=== PATIENT | female | born 1935 | race Caucasian/White ===

== ENCOUNTER 2019-02-06 09:14 | Day surgery (SDC) ==
--- NOTE | 2019-02-06 10:49 | EKG Report ---
Test Performed on : 02/06/2019 10:47:01 AM Test Reason : ams Blood Pressure : / mmHG Vent. Rate : 078 BPM Atrial Rate : 079 BPM P-R Int : 176 ms QRS Dur : 136 ms QT Int : 474 ms P-R-T Axes : 000 -33 059 degrees QTc Int : 540 ms Normal sinus rhythm. with sinus arrhythmia. Left axis deviation Left bundle branch block Abnormal ECG When compared with ECG of 21-JUN-2018 14:55, Left bundle branch block is now present Criteria for Septal infarct are no longer present Unconfirmed Result
[2019-02-06 11:04] LABS: URINE SOURCE CLEAN CATCH
[2019-02-06 11:13] LABS: BILIRUBIN URINE NEGATIVE (NEGATIVE); BLOOD URINE NEGATIVE (NEGATIVE); COLOR YELLOW; GLUCOSE URINE NEGATIVE (NEGATIVE); KETONE URINE NEGATIVE (NEGATIVE); LEUKOCYTES URINE NEGATIVE (NEGATIVE); NITRITE URINE NEGATIVE (NEGATIVE); PH URINE 5.5; PROTEIN URINE TRACE mg/dL (NEGATIVE); SP GRAVITY URINE 1.023; TURBIDITY URINE CLEAR (CLEAR); UR EPITHELIAL CELLS <10 /HPF (<10); URINE BACTERIA NEGATIVE /HPF; URINE RBC <10 /HPF (<10); URINE WBC <10 /HPF (<10); UROBILINOGEN URINE NORMAL (NORMAL)
--- NOTE | 2019-02-06 11:15 | Diag Imaging Result Doc PS360 ---
CHEST-PORTABLE - 02/06/2019 INDICATION: ams COMPARISON: 07/03/2018 FINDINGS: The lungs are normally expanded and clear. Heart size and mediastinal contours are normal. No pneumothorax or pleural effusion. IMPRESSION: Negative exam. Electronically signed by Ronak Hernandez 02/06/2019 11:13 AM
--- NOTE | 2019-02-06 11:28 | Diag Imaging Result Doc PS360 ---
CT HEAD W/O CONTRAST - 02/06/2019 INDICATION: AMS COMPARISON: 06/21/2018 FINDINGS: Stable mild cerebral atrophy. Stable advanced periventricular white matter chronic microvascular disease. No intracranial mass or hemorrhage. The skull is intact. The sinuses, mastoids, and middle ears are clear. IMPRESSION: Advanced chronic ischemic changes of the brain. No acute process. This exam was performed using automated exposure control, adjustment of mA or kV according to patient size, and/or use of iterative reconstruction technique Electronically signed by Ronak Hernandez 02/06/2019 11:26 AM
[2019-02-06 12:55] LABS: BASO# 0.04 X1000 (0.0-0.2); BASO% 0.4 % (0.0-0.8); EOS# 0.26 X1000 (0.0-0.7); EOS% 2.9 % (0.0-10.0); HEMATOCRIT 38.1 % (37.0-47.0); HEMOGLOBIN 12.5 g/dL (12.0-16.0); IMM GRAN# 0.03 X1000 (0.0-0.04); IMM GRAN% 0.3 % (0.0-0.5); LYMPH# 2.91 X1000 (1.2-3.4); LYMPH% 32.3 % (20.5-51.1); MCH 30.6 PG (27-31); MCHC 32.8 g/dL (33-37); MCV 93.2 FL (81-99); MONO# 0.79 X1000 (0.11-0.59); MONO% 8.8 % (1.7-9.3); MPV 10.4 FL (7.4-10.4); NEUT# 4.97 X1000 (1.4-6.5); NEUT% 55.3 % (42.2-75.2); PLT 232 X1000 (130-400); RBC 4.09 XMIL (4.2-5.4); RDW 13.1 % (11.5-14.5)
[2019-02-06 13:06] LABS: ALB/GLOB RATIO 1.1; ALBUMIN 3.7 g/dL (3.5-5.0); CALCIUM 9.6 mg/dL (8.8-10.2); CREATININE 0.9 mg/dL (0.5-0.9); INR 0.91; POTASSIUM 3.5 mmol/L (3.5-5.1); TOTAL BILIRUBIN 0.24 mg/dL (0.20-1.00)
[2019-02-06 13:07] LABS: PTT 27.7 Seconds (22.3-41.8)
[2019-02-06 13:34] LABS: CK INDEX 0.7 (0.0-2.5); CK-MB 2.86 ng/mL (0.0-5.0)
[2019-02-06] MEDS ORDERED: NS 500 ML IV ONE (14:13)
[2019-02-06] MEDS ORDERED: SENOKOT PO PRN (17:17)
[2019-02-06] MEDS ORDERED: TYLENOL PO PRN (17:17)
[2019-02-06] MEDS ORDERED: ANTIVERT PO PRN (17:17)
[2019-02-06] MEDS ORDERED: NS 1,000 ML IV ONE (17:17)
[2019-02-06] MEDS ORDERED: ZOFRAN IV PRN (17:17)
[2019-02-06] MEDS ORDERED: VOLTAREN 1% GEL TOP PRN (17:17)
--- NOTE | 2019-02-06 18:30 | HISTORY AND PHYSICAL ---
CHIEF COMPLAINT: Family had difficulty awakening her this morning. HISTORY OF PRESENT ILLNESS: This is the first recent [facility] admission for this 83-year- old white female, who was somnolent and lethargic this morning when family tried to awaken her. She was brought to the emergency room for evaluation. Laboratory was unremarkable except for plasma lactate, 3.5. White blood count was 9000. CT of her head showed ischemic changes but not acute, chest x-ray was clear, and echocardiogram showed no arrhythmia or evidence of ischemia. She is admitted for observation and hydration. Seroquel will be held at this time. Her home dose has been 50 mg at bedtime. PAST MEDICAL HISTORY: No recent hospitalizations or surgery. MEDICATIONS: Vitamin D 50,000 units once weekly; Seroquel 50 mg at bedtime; diclofenac gel for arthritis p.r.n.; Aricept 5 mg 1 daily; Lexapro 10 mg 1 daily; indapamide 1.25 mg 1 daily; meclizine 12.5 mg t.i.d. p.r.n. dizziness; meloxicam p.r.n. arthritis pain. ALLERGIES: Penicillin, Demerol, metoclopramide and morphine. REVIEW OF SYSTEMS: Significant for bilateral hearing loss. She has dementia which has progressed over the last 6 months or so. SOCIAL HISTORY: She is . Her is in a rehab facility and has had strokes and disability. There is no history of smoking or alcohol usage. PHYSICAL EXAMINATION: VITAL SIGNS: Temperature 98.5 degrees, heart rate 66, respirations 18, blood pressure 162/58, O2 saturation on room air 96%. GENERAL: The patient is a well-developed, well-nourished elderly white female in no apparent distress. HEENT: Pupils equal, round and reactive to light. She wears glasses. Tympanic membranes without inflammation. Pharynx benign, with no erythema. NECK: Supple, with no mass or lymphadenopathy. HEART: Regular in rate and rhythm with no murmur, rub or gallop. LUNGS: Clear, with no rales or rhonchi. ABDOMEN: Soft, with no mass, tenderness or organomegaly. EXTREMITIES: No cyanosis, clubbing or edema. Gait slow but stable. IMPRESSION: 1. Lethargy of undetermined etiology. 2. Dementia. 3. Elevated plasma lactate. PLAN: Admit for observation and further evaluation. cc: Durga Ha MD
[2019-02-06] MEDS ORDERED: REQUIP PO SCH (21:00)
[2019-02-06] MEDS ORDERED: REMERON PO SCH ×2 (21:00)
[2019-02-06] MEDS ORDERED: NAMENDA PO SCH ×2 (21:00)
[2019-02-06] MEDS ORDERED: ARICEPT PO SCH ×2 (21:00)
[2019-02-06] MEDS: NS 1,000 ML IV SCH (22:34)
--- NOTE | 2019-02-07 08:12 | PROGRESS NOTE ---
DATE: 02/07/2019 Vital Signs: Temperature 98.3 degrees, heart rate 59, respirations 20, blood pressure 177/57, and O2 saturation on room air 98%. Patient is arousable and alert this morning. She continues to be confused, but mental status is basically unchanged. Serum lactate has improved to 2.0. Initial lactate in the emergency room was 3.5 yesterday. She does not complain of pain. Chest is clear. Abdomen is soft. PLAN: Amlodipine 2.5 mg daily is added. She will ambulate with assistance. Discharge home this afternoon will be considered. cc: Durga Ha MD
[2019-02-07] MEDS ORDERED: LOZOL PO SCH ×2 (09:00)
[2019-02-07] MEDS ORDERED: MOBIC PO SCH ×2 (09:00)
[2019-02-07] MEDS ORDERED: LEXAPRO PO SCH ×2 (09:00)
[2019-02-07] MEDS ORDERED: ALLEGRA PO SCH (09:00)
[2019-02-07] MEDS ORDERED: NORVASC PO SCH (09:00)
[2019-02-07] MEDS: NS 1,000 ML IV SCH (15:29)
[2019-02-07 17:37] VITALS: BP 140/48
--- NOTE | 2019-02-07 19:00 | DISCHARGE SUMMARY ---
ADMISSION DATE: 02/06/2019 DISCHARGE DATE: 02/07/2019 FINAL DIAGNOSES: 1. Lethargy of undetermined etiology. 2. Elevated serum lactate. 3. Volume depletion. DISCHARGE MEDICATIONS: Usual medication at home except Seroquel 50 mg at bedtime is discontinued. HISTORY: This is one of a few [facility] admissions for this 83-year-old white female, who was found lethargic and difficult to arouse at home prior to admission. She was brought to the emergency room, and after hydration she became more alert. Serum lactate was elevated at 3.5, and she was admitted for further evaluation and treatment. Initial laboratory: Hemoglobin 12.5, hematocrit 38.1, white blood count 9000 with normal differential. Sodium 142, potassium 3.5, BUN 20, creatinine 0.9, glucose 88. Liver functions normal. CPK 415, CK index 0.7, troponin less than 0.01. Urinalysis normal. HOSPITAL COURSE: She was treated with intravenous fluids, and after being more alert this morning was ambulated without difficulty. Appetite has been fairly good. Serum lactate this morning was 2.0. She has been afebrile and shows no signs of sepsis or fever. She is discharged home this afternoon on her usual medications, except Seroquel is discontinued. She is to return to the office in 1 week or as needed for followup. cc: Durga Ha MD
== END 2019-02-07 18:21 | disposition home or self-care (01) ==
LOC: SUPCPDRO → ED 09:14 → 4N 09:14 → MED 15:59
PROVIDERS: ATTEND Family Medicine
CPT/HCPCS: 70450; 71010; 71045; 80053; 81001; 82550; 82553; 83605; 84484; 85025; 85610; 85730; 93005; 96360; 99285; A9270; J7030; J7040

== ENCOUNTER 2019-02-27 16:27 | Inpatient (IN) ==
--- NOTE | 2019-02-27 16:57 | Diag Imaging Result Doc PS360 ---
CT HEAD W/O CONTRAST - 02/27/2019 INDICATION: AMS, FALL COMPARISON: 02/06/2019 FINDINGS: Stable diffuse cerebral atrophy. Stable advanced periventricular white matter chronic microvascular disease. No intracranial mass or hemorrhage. The skull is intact. The sinuses are clear. IMPRESSION: No acute disease or change from prior. This exam was performed using automated exposure control, adjustment of mA or kV according to patient size, and/or use of iterative reconstruction technique Electronically signed by Ronak Hernandez 02/27/2019 4:54 PM
[2019-02-27] MEDS ORDERED: NS 1,000 ML IV ONE ×2 (20:26→21:54)
[2019-02-27 21:13] LABS: BASO# 0.02 X1000 (0.0-0.2); BASO% 0.1 % (0.0-0.8); HEMATOCRIT 44.7 % (37.0-47.0); HEMOGLOBIN 15.7 g/dL (12.0-16.0); IMM GRAN# 0.03 X1000 (0.0-0.04); IMM GRAN% 0.2 % (0.0-0.5); LYMPH# 1.61 X1000 (1.2-3.4); LYMPH% 11.8 % (20.5-51.1); MCH 31.1 PG (27-31); MCHC 35.1 g/dL (33-37); MCV 88.5 FL (81-99); MONO# 0.87 X1000 (0.11-0.59); MONO% 6.4 % (1.7-9.3); NEUT% 81.5 % (42.2-75.2); PLT 303 X1000 (130-400); RBC 5.05 XMIL (4.2-5.4); WBC 13.63 X1000 (4.8-10.8)
[2019-02-27 21:37] LABS: ALB/GLOB RATIO 1.1; ALBUMIN 4.5 g/dL (3.5-5.0); CALCIUM 9.9 mg/dL (8.8-10.2); CREATININE 1.1 mg/dL (0.5-0.9); POTASSIUM 2.7 mmol/L (3.5-5.1); TOTAL BILIRUBIN 0.61 mg/dL (0.20-1.00); TOTAL PROTEIN 8.5 g/dL (6.3-8.3)
[2019-02-27] MEDS ORDERED: KLOR-CON PO ONE (21:53)
[2019-02-28] MEDS ORDERED: POTASSIUM CHLORIDE 60 MEQ in NS 500 ML IV ONE (00:11)
--- NOTE | 2019-02-28 00:13 | PROVIDER DOCUMENTATION ---
This chart was entered by Meera Roca Scribe, acting as scribe for Zhane Hernandez MD. HPI-General Adult - General Chief Complaint: Fall Stated Complaint: FALL Time Seen by Provider: 02/27/19 19:37 Source: patient Allergies/Adverse Reactions: Patient Allergies Allergy/AdvReac Type Severity Reaction Status Date / Time Penicillins Allergy Severe SWELLING Verified 02/27/19 19:59 meperidine HCl * AdvReac Severe NAUSEA/VOMI Verified 02/27/19 19:59 [From Demerol] TING metoclopramide HCl * AdvReac Severe shaking Verified 02/27/19 19:59 [From Reglan] morphine AdvReac Severe NAUSEA/VOMI Verified 02/27/19 19:59 TING Home Medications: Home Medication List Medication Instructions Recorded Confirmed Last Taken Type Amlodipine [Norvasc] 5 mg PO DAILY 02/27/19 02/27/19 02/27/19 12:00 History Donepezil HCl 5 mg PO DAILY 02/27/19 02/27/19 02/27/19 12:00 History Indapamide 1.25 mg PO DAILY 02/27/19 02/27/19 02/27/19 12:00 History Memantine [Namenda] 5 mg PO DAILY 02/27/19 02/27/19 02/27/19 12:00 History - History of Present Illness -Gen Adult Nature of Presenting Problems: Pt is 83/F presenting to ED via EMS. Pt was found by family w/ dried blood on the back of her head and she has vomited x2 since 4pm. Pt has dementia and does not remember what happened. it is assumed that patient fell at some point. Location of Pain/Injury: reports: head (occipital) Pain Radiation: reports: no radiation Quality of Pain: reports: other (dried blood and abrasion) Severity: reports: mild Onset/Duration: reports: unsure Timing: reports: still present Context/Activities at Onset: reports: none Modifying Factors: improves with: nothing Associated Symptoms: reports: vomiting. denies: chest pain, shortness of breath Similar Symptoms Previously?: No Recently seen or treated by another doctor?: No Review of Systems - Adult - REVIEW OF SYSTEMS - ADULT Constitutional: denies: chills, fever Eyes: reports: no symptoms reported Ears, Nose, Mouth & Throat: denies: ear pain, nose pain Cardiovascular: reports: no symptoms reported Gastrointestinal: reports: nausea, vomiting Genitourinary: reports: no symptoms reported Musculoskeletal: reports: no symptoms reported Integumentary: reports: no symptoms reported Neurological: denies: dizziness/vertigo, headache/migraines, slurred speech Endocrine: reports: no symptoms reported Hematologic/Lymphatic: reports: no symptoms reported Past History - Adult - PAST MEDICAL HISTORY-ADULT Review of Records: reports: Old Records Reviewed, Nursing Assessment Review, Medications Reviewed, Social history reviewed & non-contributory. Cardiovascular: reports: HTN Neurological: reports: dementia - PRIOR SURGERIES/PROCEDURES Surgical/Procedure History: reports: cholecystectomy, hysterectomy - IMMUNIZATION STATUS Childhood Immunizations: See Nurse Assessment Flu Vaccine: See Nurse Assessment - FAMILY HISTORY Family History: reviewed, not pertinent - SOCIAL HISTORY Smoking: denies, non-smoker Substance Use: none/never Alcohol Use Frequency: never Physical Exam-General - PHYSICAL EXAM-ADULT Initial Vital Signs Reviewed: Yes - CONSTITUTIONAL General Appearance: appears well, alert, no apparent distress - EYES Eyes: PERRL/EOMI, pink conjunctivae - HEAD, EARS, NOSE, MOUTH & THROAT HENMT: other (small bloody crust on the occiput). negative: moist mucous membranes (dry mucous membranes) - NECK Neck: non-tender, full range of motion, supple, normal inspection - RESPIRATORY Respiratory: chest non-tender, lungs clear, normal breath sounds - CARDIOVASCULAR Cardiovascular: regular rate, rhythm - GASTROINTESTINAL (ABDOMEN) Abdominal Exam: non tender, soft - LYMPHATIC Lymphatic: no adenopathy - MUSCULOSKELETAL Back Exam: normal inspection, no CVA tenderness, no vertebral tenderness Extremity: normal range of motion, non-tender, normal gait, normal inspection - SKIN Integumentary: other (abrasion to occipital area, dried blood noted) - PSYCHIATRIC Psych/Mental Status: normal mood/affect Progress - PLAN OF CARE/RESULTS Progress/Plan/Lab Results: Vital Signs - 8 hr 02/27/19 19:32 02/27/19 19:36 02/27/19 19:40 Temperature 98.3 F Pulse Rate 74 Respiratory Rate 18 Blood Pressure 149/70 149/70 O2 Sat by Pulse Oximetry 96 96 98 02/27/19 19:50 02/27/19 20:00 Temperature Pulse Rate 76 Respiratory Rate 16 Blood Pressure 136/53 O2 Sat by Pulse Oximetry 95 98 Orders Category Date Time Status Orthostatic Vital Signs NOW Care 02/27/19 20:[address] HEAD W/O CONTRAST [CT] Stat Exams 02/27/19 16:42 Completed CBC WITH ELECTRONIC DIFF [HEME] Stat Lab 02/27/19 20:20 Uncollected CMP [COMPREHENSIVE METABOLIC PANEL] [CHEM] Stat Lab 02/27/19 20:20 Uncollected TROPONIN T Stat Lab 02/27/19 20:20 Uncollected 0.9% Sodium Chloride Inj [Ns] 1,000 ml Med 02/27/19 20:26 Active IV 999 mls/hr EKG [EKG] Stat Ther 02/27/19 20:20 Ordered Result Diagrams: 02/27/19 20:40 02/27/19 20:40 - REASSESSMENT Reassessment #1 Time Reassessed: 22:02 Status: improving Reassessment #2 Time Reassessed: 23:10 Status: improving - CONSULTS/PCP/HOSPITALIST Notification #1 *Consult/PCP/Hospitalist*: Dr. Cabrera Time Discussed: 23:34 Consult Disposition: Admit (Hx, PE and patient care discussed, accepted.) Departure - Departure Date of Disposition Decision: 02/27/19 Time of Disposition Decision: 23:32 DIAGNOSIS: Orthostatic hypotension Fall Qualifiers: Encounter type: initial encounter Qualified Code(s): W19.XXXA - Unspecified fall, initial encounter Head injury Qualifiers: Encounter type: initial encounter Qualified Code(s): S09.90XA - Unspecified injury of head, initial encounter Disposition: ADMITTED INPATIENT 09 Certified Medical Emergency: Emergent Condition: Stable Referrals and Follow-Ups: Cuong Valentine [Primary Care Provider] - - Critical Care Note This patient required my direct & personal management of CC.: No Attestation - Physician/ DUNCAN Attestation Patient care was provided by Advanced Practice Provider:: No The physician spent face to face time with patient:: Yes Advanced Practice Provider documentation review:: Supervising physician onsite and consulted in the evaluation and care of this patient. The physician did have a face to face encounter with the patient. This chart was documented by the indicated scribe, (Meera Roca, Cristina) and accurately reflects the services I performed and decisions made by me, Zhane Millan MD, as attested by the provider's signature.
[2019-02-28] MEDS: ROCEPHIN 1 GM in NS 50 ML IV SCH (00:25)
--- NOTE | 2019-02-28 00:59 | HISTORY AND PHYSICAL ---
PRIMARY CARE PHYSICIAN: Dr. Durga Ha. CHIEF COMPLAINT: The patient was brought because of a fall. HISTORY OF PRESENT ILLNESS: This is an 83-year-old female who was brought to the emergency department by EMS. History was taken from ER notes and from the ER physician information, Dr. Hernandez. Apparently the patient was found by family with some dried blood on the back of her head, and apparently also she has vomited 4 times since today at 4 p.m. The patient is alone in the room, no family members to provide more information. On checking prior records she was admitted to the hospital 3 weeks ago for lethargy and dementia. The patient was also admitted to [facility] in May 2018 for dementia and aggressive behavior. Upon ER evaluation the patient had a head CT, which showed no acute intracranial abnormalities, but laboratory data showed an elevated white cell count of 13.63, with a low potassium of 2.7, and also the patient was having orthostatic vital signs and blood pressure drop. The patient is being admitted for further evaluation and treatment. PAST MEDICAL HISTORY: 1. Alzheimer dementia with behavioral disturbances. 2. Vitamin D deficiency. 3. Osteoarthritis. PAST SURGICAL HISTORY: None available. ALLERGIES: The patient is allergic to Demerol, penicillin, Reglan, and morphine. SOCIAL HISTORY: Apparently she is , lives with her daughter. Apparently her is in a rehabilitation facility. She is and lives with . REVIEW OF SYSTEMS: Is not possible to obtain because of the medical situation of the patient. DISCHARGE PHYSICAL EXAMINATION: Vital Signs: Temperature 98.3 degrees, heart rate 74, respiratory rate 18, blood pressure 149/70, O2 saturation 96% on room air. General: This is a chronically ill-appearing 83-year-old female lying in bed in no acute distress. HEENT: Head is normocephalic and atraumatic. Pupils are equal, round and reactive to light and accommodation. Mucous membranes are very dry. Neck: No JVD noted. No carotid bruits. No lymphadenopathy. No thyromegaly. Cardiovascular: S1 and S2 heard. No murmurs, gallops or rubs. Regular rate and rhythm. Respiratory: Clear bilaterally to auscultation. No work of breathing. No use of accessory muscles. Abdomen: Soft, a little bit distended, but apparently nontender to palpation. Bowel sounds present. No organomegaly. Extremities: No clubbing, cyanosis or edema. Peripheral pulses present in both legs. Neurologic: The patient is sleepier. Moves 4 extremities spontaneously. She does respond to verbal stimuli, but her speech is not completely coherent. LABORATORY DATA: White cell count 13.63, hemoglobin 15.7, hematocrit 44.7, platelets 303,000, with CMP remarkable for potassium 2.7, creatinine 1.1. Urinalysis is still pending. ASSESSMENT: 1. Metabolic encephalopathy. 2. Alzheimer dementia with behavioral disturbances. 3. Dehydration. 4. Orthostatic hypotension. 5. Vitamin D deficiency. PLAN: At this point we are not completely sure why this patient is obtunded. She is dehydrated. The orthostatic vital signs are positive. At this point we are going to start IV fluids as normal saline 135 mL/h. For hypokalemia we are going to provide 60 mEq of potassium IV. Because of this elevated white cell count and considering her history of vomiting I am not quite sure if this patient has aspirated. The x-ray report is still pending. I am suspecting that she may have a urinary tract infection but a urinalysis has not been taking yet. In any case we are going to start antibiotics in this case Rocephin 1 g IV q.24 hours. We will continue to monitor this patient closely. As soon as this patient is more awake we will continue medications for dementia. We will monitor this patient closely. Tomorrow morning Dr. Durga Ha will be rounding on this patient. cc: Lex Dalton MD
[2019-02-28 01:26] LABS: URINE SOURCE CLEAN CATCH
[2019-02-28 01:31] LABS: BILIRUBIN URINE NEGATIVE (NEGATIVE); BLOOD URINE TRACE (NEGATIVE); COLOR YELLOW; GLUCOSE URINE NEGATIVE (NEGATIVE); KETONE URINE TRACE mg/dL (NEGATIVE); LEUKOCYTES URINE NEGATIVE (NEGATIVE); NITRITE URINE NEGATIVE (NEGATIVE); PROTEIN URINE 30 mg/dL (NEGATIVE); SP GRAVITY URINE 1.021; TURBIDITY URINE HAZY (CLEAR); UROBILINOGEN URINE NORMAL (NORMAL)
[2019-02-28 01:32] LABS: UR EPITHELIAL CELLS <10 /HPF (<10); URINE BACTERIA NEGATIVE /HPF; URINE RBC <10 /HPF (<10); URINE WBC <10 /HPF (<10)
[2019-02-28] MEDS: NS 1,000 ML IV SCH ×3 (02:38→20:36)
--- NOTE | 2019-02-28 06:04 | Diag Imaging Result Doc PS360 ---
EXAM: CHEST-PORTABLE HISTORY: infection TECHNIQUE: Portable chest single view COMPARISON: 02/06/2019 FINDINGS: The lungs are well expanded. The heart is not enlarged. The vessels are not distended. Minimal increased markings in the lung bases. No effusion identified. IMPRESSION: Questionable small basilar infiltrates. Follow-up PA and lateral recommended. Electronically signed by Nadeem Pike 02/28/2019 6:02 AM
[2019-02-28] MEDS ORDERED: TYLENOL PO PRN (07:02)
[2019-02-28] MEDS ORDERED: ZOFRAN IV PRN (07:02)
[2019-02-28] MEDS ORDERED: SODIUM CHLORIDE 0.9% INJ SCH (07:02)
[2019-02-28] MEDS: LOVENOX SUBQ SCH (08:47)
[2019-02-28] MEDS: PROTONIX IV SCH (08:47)
[2019-02-28 09:42] LABS: URINE SOURCE CATH
[2019-02-28 09:46] LABS: BILIRUBIN URINE NEGATIVE (NEGATIVE); BLOOD URINE NEGATIVE (NEGATIVE); COLOR YELLOW; GLUCOSE URINE NEGATIVE (NEGATIVE); KETONE URINE NEGATIVE (NEGATIVE); LEUKOCYTES URINE NEGATIVE (NEGATIVE); NITRITE URINE NEGATIVE (NEGATIVE); PH URINE 6.5; PROTEIN URINE NEGATIVE (NEGATIVE); SP GRAVITY URINE 1.009; TURBIDITY URINE CLEAR (CLEAR); UROBILINOGEN URINE NORMAL (NORMAL)
[2019-02-28 09:48] LABS: UR EPITHELIAL CELLS <10 /HPF (<10); URINE BACTERIA NEGATIVE /HPF; URINE RBC <10 /HPF (<10); URINE WBC <10 /HPF (<10)
[2019-02-28] MEDS: ARICEPT PO SCH (13:02)
[2019-02-28] MEDS: NAMENDA PO SCH (13:03)
[2019-02-28] MEDS ORDERED: ULTRAM PO PRN (18:09)
[2019-02-28] MEDS: ATIVAN PO SCH (20:36)
[2019-03-01] MEDS: ROCEPHIN 1 GM in NS 50 ML IV SCH (00:59)
[2019-03-01] MEDS: NS 1,000 ML IV SCH ×2 (05:30→16:33)
[2019-03-01 07:51] LABS: BASO# 0.03 X1000 (0.0-0.2); BASO% 0.3 % (0.0-0.8); EOS# 0.26 X1000 (0.0-0.7); HEMATOCRIT 39.4 % (37.0-47.0); HEMOGLOBIN 13.1 g/dL (12.0-16.0); IMM GRAN# 0.02 X1000 (0.0-0.04); IMM GRAN% 0.2 % (0.0-0.5); LYMPH% 26.5 % (20.5-51.1); MCH 30.8 PG (27-31); MCHC 33.2 g/dL (33-37); MCV 92.5 FL (81-99); MONO# 0.82 X1000 (0.11-0.59); MONO% 9.4 % (1.7-9.3); MPV 11.1 FL (7.4-10.4); NEUT# 5.25 X1000 (1.4-6.5); NEUT% 60.6 % (42.2-75.2); PLT 217 X1000 (130-400); RBC 4.26 XMIL (4.2-5.4); RDW 12.8 % (11.5-14.5); WBC 8.68 X1000 (4.8-10.8)
[2019-03-01 08:13] LABS: AGAP 10; BUN 8 mg/dL (8-22); CALCIUM 8.7 mg/dL (8.8-10.2); CHLORIDE 105 mmol/L (98-107); COSMO 278; CREATININE 0.7 mg/dL (0.5-0.9); ESTIMATED GFR > 60; GLUCOSE 99 mg/dL (70-104); POTASSIUM 3.4 mmol/L (3.5-5.1); SODIUM 140 mmol/L (136-145); TCO2 25 mmol/L (25-35)
[2019-03-01] MEDS: ATIVAN PO SCH ×3 (09:12→21:27)
[2019-03-01] MEDS: NAMENDA PO SCH (09:12)
[2019-03-01] MEDS: LOVENOX SUBQ SCH (09:12)
[2019-03-01] MEDS: ARICEPT PO SCH (09:12)
[2019-03-01] MEDS: PROTONIX IV SCH (09:12)
[2019-03-02] MEDS: ROCEPHIN 1 GM in NS 50 ML IV SCH (00:16)
[2019-03-02] MEDS: NS 1,000 ML IV SCH ×2 (00:21→09:39)
[2019-03-02 07:19] LABS: BASO# 0.04 X1000 (0.0-0.2); BASO% 0.5 % (0.0-0.8); EOS% 3.7 % (0.0-10.0); HEMATOCRIT 40.4 % (37.0-47.0); HEMOGLOBIN 13.6 g/dL (12.0-16.0); IMM GRAN# 0.02 X1000 (0.0-0.04); IMM GRAN% 0.2 % (0.0-0.5); LYMPH# 2.11 X1000 (1.2-3.4); LYMPH% 26.3 % (20.5-51.1); MCH 30.3 PG (27-31); MCHC 33.7 g/dL (33-37); MONO# 0.71 X1000 (0.11-0.59); MONO% 8.9 % (1.7-9.3); NEUT# 4.83 X1000 (1.4-6.5); NEUT% 60.4 % (42.2-75.2); PLT 229 X1000 (130-400); RBC 4.49 XMIL (4.2-5.4); RDW 12.6 % (11.5-14.5); WBC 8.01 X1000 (4.8-10.8)
[2019-03-02 07:52] LABS: AGAP 9; BUN 4 mg/dL (8-22); CALCIUM 8.9 mg/dL (8.8-10.2); CHLORIDE 110 mmol/L (98-107); COSMO 285; CREATININE 0.8 mg/dL (0.5-0.9); ESTIMATED GFR > 60; GLUCOSE 95 mg/dL (70-104); POTASSIUM 3.3 mmol/L (3.5-5.1); SODIUM 145 mmol/L (136-145); TCO2 26 mmol/L (25-35)
[2019-03-02] MEDS: ATIVAN PO SCH ×3 (09:39→22:33)
[2019-03-02] MEDS: ARICEPT PO SCH (09:39)
[2019-03-02] MEDS: NAMENDA PO SCH (09:39)
[2019-03-02] MEDS: LOVENOX SUBQ SCH (09:39)
[2019-03-02] MEDS: PROTONIX IV SCH (09:39)
[2019-03-03] MEDS: ROCEPHIN 1 GM in NS 50 ML IV SCH (02:06)
[2019-03-03] MEDS: NS 1,000 ML IV SCH (02:07)
[2019-03-03 07:29] LABS: BASO# 0.02 X1000 (0.0-0.2); BASO% 0.3 % (0.0-0.8); EOS# 0.33 X1000 (0.0-0.7); EOS% 4.3 % (0.0-10.0); HEMOGLOBIN 13.1 g/dL (12.0-16.0); IMM GRAN# 0.02 X1000 (0.0-0.04); IMM GRAN% 0.3 % (0.0-0.5); LYMPH# 2.43 X1000 (1.2-3.4); LYMPH% 31.7 % (20.5-51.1); MCH 30.8 PG (27-31); MCHC 34.5 g/dL (33-37); MCV 89.4 FL (81-99); MONO# 0.63 X1000 (0.11-0.59); MONO% 8.2 % (1.7-9.3); MPV 10.8 FL (7.4-10.4); NEUT# 4.23 X1000 (1.4-6.5); NEUT% 55.2 % (42.2-75.2); PLT 229 X1000 (130-400); RBC 4.25 XMIL (4.2-5.4); RDW 12.4 % (11.5-14.5); WBC 7.66 X1000 (4.8-10.8)
[2019-03-03 07:41] VITALS: BP 157/51
[2019-03-03] MEDS ORDERED: SALINE LOCK IV FLUID XX ONE (08:11)
[2019-03-03 08:28] LABS: AGAP 12; BUN 6 mg/dL (8-22); CALCIUM 8.5 mg/dL (8.8-10.2); CHLORIDE 103 mmol/L (98-107); COSMO 281; CREATININE 0.8 mg/dL (0.5-0.9); ESTIMATED GFR > 60; GLUCOSE 100 mg/dL (70-104); POTASSIUM 2.8 mmol/L (3.5-5.1); SODIUM 142 mmol/L (136-145); TCO2 27 mmol/L (25-35)
--- NOTE | 2019-03-03 08:41 | PROGRESS NOTE ---
DATE: 03/03/2019 OBJECTIVE: Vital signs stable with temperature 97.9 degrees, heart rate 55, respirations 16, blood pressure 157/51. O2 saturation on room air 97%. The patient is anxious to go home. She was admitted on 02/28 with metabolic encephalopathy, Alzheimer's dementia, dehydration, orthostatic hypotension with fall, and vitamin D deficiency. Social service consult was made and discussion made with the family on Sunday. She may need rehab instead of going back home. Disposition will be completed when rehab bed is arranged. The patient was placed on intravenous ceftriaxone despite normal white count and normal lab. There was questionable small basilar infiltrate bilaterally. She has been afebrile during the hospital course. cc: Durga Ha MD
[2019-03-03] MEDS: ATIVAN PO SCH (09:51)
[2019-03-03] MEDS: LOVENOX SUBQ SCH (09:51)
[2019-03-03] MEDS: NAMENDA PO SCH (09:52)
[2019-03-03] MEDS: PROTONIX IV SCH (09:52)
[2019-03-03] MEDS: ARICEPT PO SCH (09:52)
[2019-03-03] MEDS ORDERED: KEFLEX PO SCH (14:00)
[2019-03-03] MEDS ORDERED: KLOR-CON PO SCH (21:00)
[2019-03-04] MEDS ORDERED: PROTONIX PO SCH (07:00)
--- NOTE | 2019-03-04 07:15 | DISCHARGE SUMMARY ---
ADMISSION DATE: 02/28/2019 DISCHARGE DATE: 03/03/2019 FINAL DIAGNOSES: 1. Dehydration. 2. Orthostatic hypotension. 3. Alzheimer's dementia. 4. Metabolic encephalopathy. 5. Vitamin D deficiency. 6. Mild bilateral basilar infiltrates on chest x-ray. DISCHARGE MEDICATIONS: Usual medications at home plus Keflex 500 mg four times a day x5 days. HISTORY: This is one of several [facility] admissions for this 83-year-old, white female who presented to the emergency room after passing at home. She was found to have orthostatic hypotension. INITIAL LABORATORY: Hemoglobin 15.7, hematocrit 44.7, white blood count 13,600 with 82% neutrophils. Sodium 138, potassium 2.7, BUN 23, creatinine 1.1, glucose 133, total protein 8.5. Troponin less than 0.01. HOSPITAL COURSE: After hydration and correction of electrolytes, potassium was 3.4. Blood pressure improved and was 157/51 this morning. BUN was 6 and creatinine 0.8. Potassium dropped again to 2.8. KCl 10 mEq b.i.d. will be added as a prescription for her to take at home. She was feeling well this morning and is discharged home to be seen back in the office in 1 week for followup. cc: Durga Ha MD
== END 2019-03-03 14:10 | disposition home health service (06) | DRG 640 ==
LOC: SUPCPDRO → ED 16:27 → EDIPHOLD 02-28 14:35 → 3N 02-28 18:44
PROVIDERS: ADMIT Family Medicine; ATTEND Family Medicine
CPT/HCPCS: 51701; 70450; 71010; 71045; 80048; 80053; 81001; 83735; 84484; 85025; 87040; 87088; 93005; 94761; 96361; 96365; 96366; 96367; 96372; 96375; 97116; 97161; 99285; A9270; C9113; J0696; J1650; J3480; J7030; J7040; P9612; S0164

== ENCOUNTER 2019-04-28 15:50 | Inpatient (IN) ==
--- NOTE | 2019-04-28 16:53 | Diag Imaging Result Doc PS360 ---
EXAM: CT HEAD/C-SPINE W/O CONTRAST 04/28/2019 HISTORY: fall TECHNIQUE: This exam was performed using automated exposure control, adjustment of mA or kV according to patient size, and/or use of iterative reconstruction technique. COMMENT: There is motion artifact. There is considerable abnormal lucency throughout the white matter of both hemispheres particularly in the frontal and parietal lobes. There is some ex vacuo enlargement of the lateral ventricles with moderate cerebral atrophy. There are calcifications in the internal carotid arteries bilaterally. There is no evidence of bleed or abnormal extra-axial fluid collection. The calvarium is intact. The visualized paranasal sinuses are clear with the exception of one of the left ethmoid air cells. Compared to 04/14/2019 the appearance the brain has not changed significantly. The ethmoid opacification was present previously and previously there was some opacification of the left sphenoid sinus which has improved. Cervical spine: There is loss of the lordotic curvature in the mid cervical spine and disc space narrowing with osteophyte formation particularly anteriorly at C4-5, C5-6, and C6-7. These findings were all present on 04/14/2019. There is also hypertrophic facet disease at the C3-4 level on the left and at C2-C3 on the right. No prevertebral soft tissue swelling is present. IMPRESSION: Chronic ischemic white matter disease. Atrophy. No evidence of acute intracranial disease or acute cervical spine abnormality. Electronically signed by Alexis Knapp 04/28/2019 4:51 PM
[2019-04-28 17:59] LABS: URINE SOURCE CATH
[2019-04-28 18:02] LABS: UR EPITHELIAL CELLS <10 /HPF (<10); URINE BACTERIA NEGATIVE /HPF; URINE RBC <10 /HPF (<10); URINE WBC <10 /HPF (<10)
[2019-04-28 18:03] LABS: BILIRUBIN URINE NEGATIVE (NEGATIVE); BLOOD URINE TRACE (NEGATIVE); COLOR YELLOW; GLUCOSE URINE NEGATIVE (NEGATIVE); KETONE URINE 80 mg/dL (NEGATIVE); LEUKOCYTES URINE NEGATIVE (NEGATIVE); NITRITE URINE NEGATIVE (NEGATIVE); PROTEIN URINE 100 mg/dL (NEGATIVE); SP GRAVITY URINE 1.021; TURBIDITY URINE CLEAR (CLEAR); UROBILINOGEN URINE NORMAL (NORMAL)
[2019-04-28 18:04] LABS: BASO# 0.05 X1000 (0.0-0.2); BASO% 0.3 % (0.0-0.8); EOS# 0.01 X1000 (0.0-0.7); EOS% 0.1 % (0.0-10.0); HEMATOCRIT 44.5 % (37.0-47.0); HEMOGLOBIN 15.4 g/dL (12.0-16.0); IMM GRAN# 0.05 X1000 (0.0-0.04); IMM GRAN% 0.3 % (0.0-0.5); LYMPH# 1.21 X1000 (1.2-3.4); LYMPH% 6.1 % (20.5-51.1); MCH 30.5 PG (27-31); MCHC 34.6 g/dL (33-37); MCV 88.1 FL (81-99); MONO# 0.97 X1000 (0.11-0.59); MONO% 4.9 % (1.7-9.3); MPV 10.9 FL (7.4-10.4); NEUT# 17.68 X1000 (1.4-6.5); NEUT% 88.3 % (42.2-75.2); PLT 450 X1000 (130-400); RBC 5.05 XMIL (4.2-5.4); RDW 13.2 % (11.5-14.5); WBC 19.97 X1000 (4.8-10.8)
[2019-04-28 18:22] LABS: ALBUMIN 4.4 g/dL (3.5-5.0); CALCIUM 10.5 mg/dL (8.8-10.2); POTASSIUM 3.3 mmol/L (3.5-5.1); TOTAL BILIRUBIN 0.6 mg/dL (0.20-1.00); TOTAL PROTEIN 8.7 g/dL (6.3-8.3)
--- NOTE | 2019-04-28 19:26 | PROVIDER DOCUMENTATION ---
This chart was entered by Chelsie Davis Scribe, acting as scribe for Zhane Millan MD. HPI-Head Injury - General Chief Complaint: Fall Stated Complaint: COLLAPSE IN KITCHEN,HIT HEAD,VOMITING Time Seen by Provider: 04/28/19 17:18 Source: patient, family Allergies/Adverse Reactions: Patient Allergies Allergy/AdvReac Type Severity Reaction Status Date / Time Penicillins Allergy Severe SWELLING Verified 04/28/19 17:42 meperidine HCl * AdvReac Severe NAUSEA/VOMI Verified 04/28/19 17:42 [From Demerol] TING metoclopramide HCl * AdvReac Severe shaking Verified 04/28/19 17:42 [From Reglan] morphine AdvReac Severe NAUSEA/VOMI Verified 04/28/19 17:42 TING Home Medications: Home Medication List Medication Instructions Recorded Confirmed Last Taken Type Amlodipine [Norvasc] 5 mg PO DAILY 02/27/19 02/27/19 02/27/19 12:00 History Donepezil HCl 5 mg PO DAILY 02/27/19 02/27/19 02/27/19 12:00 History Indapamide 1.25 mg PO DAILY 02/27/19 02/27/19 02/27/19 12:00 History Memantine [Namenda] 5 mg PO DAILY 02/27/19 02/27/19 02/27/19 12:00 History CephALEXIN [Keflex] 500 mg PO Q6HR #20 cap 03/03/19 Unknown Rx Potassium Chloride E.r. [Klor-Con] 10 meq PO BID #60 tab 03/03/19 Unknown Rx Acetaminophen [Tylenol] 500 mg PO Q4H PRN PRN #20 tab 04/15/19 Unknown Rx Sulfamethoxazole/Trimethoprim 1 ea PO BID #10 tab 04/15/19 Unknown Rx [Bactrim 400-80 mg Tablet] - History of Present Illness-Head Injury Nature of Presenting Problem: Patient is a 83 year old female who presents with a head injury after fall. Patient states falling in the kitchen and hitting head. Patient's son states finding vomiting in the house and the patient sitting on the sofa. Patient also states right arm pain. Head Injury Location: reports: occipital Other injuries associated with incident:: reports: RUE Quality of Pain: reports: aching Severity: reports: mild Onset/Duration: reports: unsure Timing: reports: still present Method of Injury: reports: fell Any recent trauma/injury?: reports: to head Loss of Consciousness: unsure Locality of Occurance: Home Similar Symptoms Previously?: Yes Recently seen or treated by another doctor?: Yes Review of Systems - Adult - REVIEW OF SYSTEMS - ADULT Constitutional: reports: no symptoms reported Eyes: reports: no symptoms reported Ears, Nose, Mouth & Throat: reports: no symptoms reported Cardiovascular: reports: no symptoms reported Respiratory: reports: no symptoms reported Gastrointestinal: reports: no symptoms reported Genitourinary: reports: no symptoms reported Past History - Adult - PAST MEDICAL HISTORY-ADULT Review of Records: reports: Old Records Reviewed, Nursing Assessment Review, Medications Reviewed, Social history reviewed & non-contributory. Major Childhood Illnesses: reports: denies history Cardiovascular: reports: HTN Respiratory: reports: denies history Gastrointestinal: reports: denies history Obstetrical/Gynecological: reports: denies history Genitourinary: reports: denies history Musculoskeletal: reports: denies history Neurological: reports: dementia Endocrine/Immune: reports: denies history Other Conditions: reports: denies history - PRIOR SURGERIES/PROCEDURES Surgical/Procedure History: reports: cholecystectomy, hysterectomy - IMMUNIZATION STATUS Childhood Immunizations: See Nurse Assessment Flu Vaccine: See Nurse Assessment - FAMILY HISTORY Family History: reviewed, not pertinent - SOCIAL HISTORY Smoking: denies Substance Use: denies Physical Exam- Neurological - Physical Exam-Neuro General Appearance: alert, no apparent distress HENMT: normal ENT inspection, TMs normal, pharynx normal Head Injury: other (dried blood to occipital) Neck: non-tender, normal inspection Respiratory: chest non-tender, lungs clear, normal breath sounds Cardiovascular: normal peripheral pulses, regular rate, rhythm Abdominal Exam: normal bowel sounds, non tender, soft Extremity: normal gait, normal inspection Coordination/Gait: normal gait, negative Romberg's sign Neurologic: social services manager II-XII nml as tested, grossly normal, no motor/sensory deficits, negative romberg's sign Progress - PLAN OF CARE/RESULTS Progress/Plan/Lab Results: Vital Signs - 8 hr 04/28/19 15:57 04/28/19 17:40 Temperature 98.0 F Pulse Rate 95 H Respiratory Rate 18 Blood Pressure 157/92 163/94 O2 Sat by Pulse Oximetry 97 97 Laboratory Results - last 24 hr 04/28/19 04/28/19 04/28/19 16:15 16:15 17:50 WBC 19.97 H RBC 5.05 Hgb 15.4 Hct 44.5 MCV 88.1 MCH 30.5 MCHC 34.6 RDW Std Deviation 13.2 Plt Count 450 H MPV 10.9 H Immature Gran % (Auto) 0.3 Neut % (Auto) 88.3 H Lymph % (Auto) 6.1 L [place] % (Auto) 4.9 Eos % (Auto) 0.1 Baso % (Auto) 0.3 Immature Gran # (Auto) 0.05 H Neut # (Auto) 17.68 H Lymph # (Auto) 1.21 [place] # (Auto) 0.97 H Eos # (Auto) 0.01 Baso # (Auto) 0.05 Sodium 139 Potassium 3.3 L Chloride 98 Carbon Dioxide 26 Anion Gap 15 BUN 18 Creatinine 1.0 H Estimated GFR/1.73 m2 53 BUN/Creatinine Ratio 18 Glucose 137 H Calculated Osmolality 282 Calcium 10.5 H Total Bilirubin 0.60 AST 25 ALT 17 Alkaline Phosphatase 111 H Total Protein 8.7 H Albumin 4.4 Globulin 4.3 Albumin/Globulin Ratio 1.0 Urine Source CATH Urine Color YELLOW Urine Turbidity CLEAR Urine pH 6.0 Ur Specific [place] 1.021 Urine Protein 100 A Ur Glucose (Stick) NEGATIVE Ur Ketones (Stick) 80 A Urine Blood TRACE A Urine Nitrite NEGATIVE Urine Bilirubin NEGATIVE Urobilinogen Dipstick NORMAL Urine Leukocytes NEGATIVE Urine WBC (Auto) <10 Urine RBC (Auto) <10 U Epithel Cells (Auto) <10 Urine Bacteria (Auto) NEGATIVE Orders Category Date Time Status Admit - [facility] Routine AdmDCTranf 04/28/19 19:[address] HEAD/C-SPINE W/O CONTRAST [CT] Stat Exams 04/28/19 16:14 Completed CBC WITH ELECTRONIC DIFF [HEME] Stat Lab 04/28/19 16:15 Completed COMPREHENSIVE METABOLIC PANEL [CHEM] Stat Lab 04/28/19 16:15 Completed URINALYSIS [URINALYSIS] Stat Lab 04/28/19 17:50 Completed EKG [EKG] Stat Ther 04/28/19 16:05 Ordered Transfer/Admit Order [TRANSFER] Routine Transfer 04/28/19 19:11 Ordered pt with dementia and Hx is limited. unclear why she fell. WBC elevated, pt will benefit from admission further investigation and Monitor. Result Diagrams: 04/28/19 16:15 04/28/19 16:15 - CONSULTS/PCP/HOSPITALIST Notification #1 *Consult/PCP/Hospitalist*: Dr. Durga Ha Time Discussed: 18:54 Consult Disposition: Admit (Hx, PE and pt care discussed, accepted.) Departure - Departure Date of Disposition Decision: 04/28/19 Time of Disposition Decision: 18:57 DIAGNOSIS: Syncope Qualifiers: Syncope type: unspecified Qualified Code(s): R55 - Syncope and collapse Fall Qualifiers: Encounter type: initial encounter Qualified Code(s): W19.XXXA - Unspecified fall, initial encounter Leukocytosis Qualifiers: Leukocytosis type: other Qualified Code(s): D72.828 - Other elevated white blood cell count Disposition: ADMITTED INPATIENT 09 Certified Medical Emergency: Emergent Condition: Stable Referrals and Follow-Ups: Durga Ha MD [Primary Care Provider] - - Critical Care Note This patient required my direct & personal management of CC.: No Attestation - Physician/ DUNCAN Attestation Patient care was provided by Advanced Practice Provider:: No The physician spent face to face time with patient:: Yes Advanced Practice Provider documentation review:: Supervising physician onsite and consulted in the evaluation and care of this patient. The physician did have a face to face encounter with the patient. This chart was documented by the indicated scribe, (Chelsie Davis Scribe) and accurately reflects the services I performed and decisions made by me, Zhane Millan MD, as attested by the provider's signature.
[2019-04-28] MEDS ORDERED: ZOFRAN IV PRN (20:54)
[2019-04-28] MEDS ORDERED: TYLENOL PO PRN (21:11)
[2019-04-28] MEDS ORDERED: KLOR-CON PO SCH (21:11)
--- NOTE | 2019-04-28 21:26 | HISTORY AND PHYSICAL ---
CHIEF COMPLAINT: Passed out at home, hit her head, and had several episodes of vomiting. PRESENT ILLNESS: This is one of several recent admissions for this 83-year-old white female with dementia who was left at home by her son for a few minutes so he could go to the store. When he returned she had gotten out of bed and went to the kitchen. She was on the floor after having fallen. There were 3 spots of vomiting on the floor. There was no hematemesis. She had mild left facial weakness and some slurring of speech. He called the office and was instructed to take her to the emergency room for evaluation. CT scan of her head and neck revealed no acute change with no fracture of the C-spine and no intracerebral injury. Laboratory revealed leukocytosis with white blood count almost 20,000. There was no history of recent fever. BUN and creatinine were normal. She has had several recent CT scans of her head related to falls. PAST MEDICAL HISTORY: Admitted 04/14/2019, 02/28 and 02/06/2019. PAST MEDICAL HISTORY: Significant for Alzheimer dementia with behavioral changes, vitamin D deficiency, osteoarthritis. PRESENT MEDICATIONS: Amlodipine 2.5 mg 1 daily, indapamide 1.25 mg daily, potassium chloride 10 mEq 1 daily, donepezil 5 mg daily, memantine 5 mg daily, and acetaminophen. ALLERGIES: Penicillin, Demerol, metoclopramide and morphine. REVIEW OF SYSTEMS: Some abdominal pain, generalized, and nausea prior to admission. She complains with no discomfort at the current time. The patient has had dementia for several years. A few months ago she lost her . He was in assisted living due to multiple illnesses and cerebral vascular disease She also has recently lost a daughter. She is accompanied by her son, Refugio. FAMILY HISTORY: Unremarkable. SOCIAL HISTORY: She currently resides at home with care from her son. PHYSICAL EXAMINATION: VITAL SIGNS: Temperature 98.4 degrees, heart rate 60, respirations 16, blood pressure 84/50, O2 saturation 98% on room air. HEENT: Pupils equal, round, and reactive to light. She wears glasses. There is no facial weakness. Pharynx benign with no erythema or exudate. NECK: Supple with no mass or lymphadenopathy. HEART: Regular in rate and rhythm with no murmur, rub or gallop. LUNGS: Clear with no rales or rhonchi. ABDOMEN: Soft with no mass, tenderness, or organomegaly. EXTREMITIES: No cyanosis, clubbing, or edema. RECTAL AND GENITALIA: Deferred. NEUROLOGICAL: Grossly intact with no focal weakness. She is able to move all extremities and does not complain of pain. She has a contusion on the occipital area due to her fall today. There is no active bleeding. IMPRESSION: 1. Syncopal episode with fall and contusion of her occipital area. 2. Hypotension. 3. Volume depletion. 4. Acute gastritis. 5. Leukocytosis of undetermined etiology. PLAN: Admit for further evaluation and treatment. Chest x-ray will be done tomorrow morning. Blood cultures are obtained. The patient is placed on Rocephin and clindamycin with suspicion of aspiration pneumonia. cc: Durga Ha MD MTDD
[2019-04-28] MEDS: D5 1/2 NS + KCL 10 MEQ 1,000 ML IV SCH (22:41)
[2019-04-28] MEDS: CLINDAMYCIN 600 MG/D5W 600 MG/50 ML IVPB IV SCH (22:43)
[2019-04-29] MEDS: ROCEPHIN 1 GM in NS 50 ML IV SCH (00:31)
[2019-04-29] MEDS: CLINDAMYCIN 600 MG/D5W 600 MG/50 ML IVPB IV SCH (06:27)
[2019-04-29] MEDS: D5 1/2 NS + KCL 10 MEQ 1,000 ML IV SCH (06:27)
--- NOTE | 2019-04-29 07:39 | EKG Report ---
Test Performed on : 04/28/2019 4:10:00 PM Test Reason : DIZZINESS/FALL Blood Pressure : / mmHG Vent. Rate : 084 BPM Atrial Rate : 084 BPM P-R Int : 140 ms QRS Dur : 126 ms QT Int : 434 ms P-R-T Axes : 075 -50 092 degrees QTc Int : 512 ms Normal sinus rhythm. Left bundle branch block Abnormal ECG When compared with ECG of 06-FEB-2019 10:47, (Unconfirmed) T wave amplitude has increased in Inferior leads T wave inversion now evident in Lateral leads Unconfirmed Result
--- NOTE | 2019-04-29 07:46 | Diag Imaging Result Doc PS360 ---
EXAM: CHEST-2 VIEWS HISTORY: leucocytosis, cough TECHNIQUE: Chest two views COMPARISON: 02/27/2019 FINDINGS: The lungs are well expanded. The heart is not enlarged. The vessels are not distended. There are no infiltrates. No pleural effusions. IMPRESSION: No pneumonia. Electronically signed by Nadeem Pike 04/29/2019 7:43 AM
--- NOTE | 2019-04-29 08:24 | PROGRESS NOTE ---
DATE: 04/29/2019 Vital signs stable with temperature 97.7 degrees, heart rate 64, respirations 16, blood pressure 140/49, O2 saturation on room air 98%. Chest x-ray showed no pneumonia. She is alert and at baseline mentally this morning. Chest is clear. Abdomen is soft. She is eating breakfast fairly well. PLAN: Physical therapy assistance for ambulation, repeat lab tomorrow morning. Social service consult is obtained for retirement facility placement. cc: Durga Ha MD
[2019-04-29] MEDS: NAMENDA PO SCH (08:58)
[2019-04-29] MEDS: ARICEPT PO SCH (08:58)
[2019-04-29] MEDS: POTASSIUM CHLORIDE 10 MEQ in D5W 1,000 ML IV SCH (10:48)
--- NOTE | 2019-04-29 15:58 | EKG Report ---
Test Performed on : 04/28/2019 8:47:25 PM Test Reason : ER Blood Pressure : / mmHG Vent. Rate : 073 BPM Atrial Rate : 073 BPM P-R Int : 162 ms QRS Dur : 134 ms QT Int : 474 ms P-R-T Axes : 064 -44 073 degrees QTc Int : 522 ms Normal sinus rhythm. Left axis deviation Left bundle branch block Abnormal ECG When compared with ECG of 28-APR-2019 16:10, (Unconfirmed) No significant change was found Unconfirmed Result
[2019-04-30] MEDS: ROCEPHIN 1 GM in NS 50 ML IV SCH (01:10)
[2019-04-30] MEDS: POTASSIUM CHLORIDE 10 MEQ in D5W 1,000 ML IV SCH ×2 (02:20→18:18)
[2019-04-30 07:49] LABS: BASO# 0.04 X1000 (0.0-0.2); BASO% 0.4 % (0.0-0.8); EOS# 0.22 X1000 (0.0-0.7); EOS% 2.1 % (0.0-10.0); HEMATOCRIT 39.1 % (37.0-47.0); HEMOGLOBIN 13.3 g/dL (12.0-16.0); IMM GRAN# 0.03 X1000 (0.0-0.04); IMM GRAN% 0.3 % (0.0-0.5); LYMPH# 3.12 X1000 (1.2-3.4); LYMPH% 29.9 % (20.5-51.1); MCH 30.9 PG (27-31); MCV 90.7 FL (81-99); MONO# 1.02 X1000 (0.11-0.59); MONO% 9.8 % (1.7-9.3); MPV 10.1 FL (7.4-10.4); NEUT# 6.01 X1000 (1.4-6.5); NEUT% 57.5 % (42.2-75.2); PLT 312 X1000 (130-400); RBC 4.31 XMIL (4.2-5.4); RDW 13.3 % (11.5-14.5); WBC 10.44 X1000 (4.8-10.8)
--- NOTE | 2019-04-30 07:54 | PROGRESS NOTE ---
DATE: 04/30/2019 VITAL SIGNS: Temperature 99.0 degrees, heart rate 73, respirations 16, blood pressure 164/60, O2 saturation on room air 98%. The patient is somnolent. Chest is clear. There is no ankle edema. Abdomen is soft and nontender. Blood cultures are negative for growth at 48 hours. PLAN: Continue evaluation, nursing home facility at discharge. cc: Durga Ha MD
[2019-04-30 07:56] LABS: AGAP 13; BUN 10 mg/dL (8-22); CALCIUM 9.1 mg/dL (8.8-10.2); CHLORIDE 104 mmol/L (98-107); COSMO 284; CREATININE 0.8 mg/dL (0.5-0.9); ESTIMATED GFR > 60; GLUCOSE 107 mg/dL (70-104); POTASSIUM 3.1 mmol/L (3.5-5.1); SODIUM 143 mmol/L (136-145); TCO2 26 mmol/L (25-35)
--- NOTE | 2019-04-30 08:41 | Carotid Study ---
DATE: 04/28/2019 PROCEDURE: Bilateral carotid ultrasound study. REQUESTING PHYSICIAN: Durga Ha MD. INTERPRETING PHYSICIAN: Ever Wu MD. TECH: [place]ick[place]. INDICATIONS: Syncope. EQUIPMENT: [employer] E9 ultrasound system with a 9LD transducer. OBSERVED DATA RIGHT LEFT Brachial Blood Pressure Carotid Pulse Bruits: Carotid/Sub DIAGRAM OF ULTRASOUND IMAGING R L RIGHT INT EXT INT EXT LEFT Radu (cm/s) Radu (cm/s) Subclavian 110/0 Subclavian 117/0 CCA Proximal 77/7 CCA Proximal 97/11 CCA Distal 79/10 CCA Distal 81/11 Bulb 77/9 Bulb 84/11 ICA Proximal 68/9 ICA Proximal 66/8 ICA Mid 85/16 ICA Mid 55/9 ICA Distal 84/16 ICA Distal 86/17 ECA 105/0 ECA 110/0 Vertebral 51/8 A Vertebral 44/6 A ICA/CCA Ratio ICA/CCA Ratio % Stenosis 0-39% % Stenosis 0-39% FINDINGS: Minimal atherosclerosis which at this time does not produce a hemodynamically significant flow-limiting stenosis. Both vertebral arteries are antegrade flow. PHYSICIAN INTERPRETATION: By strict velocity criteria, no hemodynamically significant flow- limiting stenosis. cc: MD Durga La MD
[2019-04-30] MEDS: ARICEPT PO SCH (09:54)
[2019-04-30] MEDS: NAMENDA PO SCH (09:54)
[2019-04-30] MEDS: LOZOL PO SCH (09:55)
[2019-05-01 07:33] VITALS: BP 149/54
--- NOTE | 2019-05-01 08:14 | PROGRESS NOTE ---
DATE: 05/01/2019 Vital signs stable with temperature 97.9 degrees, heart rate 71, respirations 12, blood pressure 149/54, O2 saturation on room air 98%. The patient has no complaints this morning. She rested fairly well. She is alert and oriented to person and place this morning. Brief discussion was made about her need for a snf. She seemed to understand the conversation. PLAN: Continue physical therapy, snf bed when available. cc: Durga Ha MD
[2019-05-01] MEDS: NAMENDA PO SCH (08:39)
[2019-05-01] MEDS: LOZOL PO SCH (08:39)
[2019-05-01] MEDS: ARICEPT PO SCH (08:39)
--- NOTE | 2019-05-01 10:10 | DISCHARGE SUMMARY ---
ADMISSION DATE: 04/28/2019 DISCHARGE DATE: 05/01/2019 FINAL DIAGNOSES: Alzheimer dementia, syncope, contusion of her occipital area secondary to fall, leukocytosis, hypotension. DISPOSITION: [facility]. HISTORY: This is one of several recent [facility] admissions for this 83-year-old white female who fell at home resulting in an contusion to her occipital area. Her son had been taking care of her and had gone out of the home for about 30 minutes to go to the store. On returning, she was on the floor and confused. She had vomited 3 times and vomitus was on the floor in 3 spots. She was brought to the emergency room where she was evaluated. She was found to have an elevated white blood count of 19,900. Blood pressure was low at 70/50. She was hydrated and admitted for further evaluation and treatment. Due to history of several recent falls and persistent moderate to severe dementia she will most likely need long-term penitentiary care. INITIAL LABORATORY: Hemoglobin 15.4, hematocrit 44.5, white blood count 19,900. Sodium 139, potassium 3.3, BUN 18, creatinine 1.0, glucose 137. Calcium 10.5. Alkaline phosphatase 111. Total protein 8.7. Albumin 4.4. HOSPITAL COURSE: She was hydrated and evaluation was done to determine etiology of syncope. Telemetry remained stable. CT scan of her head revealed some atrophy, but no new lesions or bleed. Carotid ultrasound showed no hemodynamically significant lesions. Her blood pressure improved after hydration. Yesterday her white blood count was 10,000. She has remained afebrile. Physical Therapy has assisted ambulation. Discussion was made with her son and with her concerning need for penitentiary placement. She is transferred today to followup with penitentiary for extended care. cc: Durga Ha MD
--- NOTE | 2019-05-07 09:53 | ED EKG INTERP ---
This chart was entered by My Araya Scribe, acting as scribe for Kiersten Hughes MD. EKG Interpretation - EKG Time of EKG reading by physician:: 16:19 EKG Read and Signed by:: Kiersten Hughes EKG Interpretation (*Must complete 3 of following elements*): Abnormal Rate: 84 Rhythm: NSR [place]: normal QRS: LBB TN Interval: normal ST Wave: normal Attestation - Physician/ DUNCAN Attestation Patient care was provided by Advanced Practice Provider:: No The physician spent face to face time with patient:: Yes Advanced Practice Provider documentation review:: Supervising physician onsite and consulted in the evaluation and care of this patient. The physician did have a face to face encounter with the patient. This chart was documented by the indicated scribe, (My Araya Scribe) and accurately reflects the services I performed and decisions made by me, Kiersten Hughes MD, as attested by the provider's signature.
== END 2019-05-01 11:51 | DRG 312 ==
LOC: ED 15:50 → 3N 20:05
PROVIDERS: ADMIT Family Medicine; ATTEND Family Medicine
CPT/HCPCS: 51701; 70450; 71020; 71046; 72125; 80048; 80053; 81001; 82948; 85025; 87040; 93005; 93880; 97162; 97530; 99285; A9270; J0696; J3480; J7070; P9612; XXXXX